=== PATIENT | female | born 1955 | race Caucasian/White ===

== ENCOUNTER 2021-02-16 15:29 | Outpatient (REF) | payer OTHER, SELFPAY ==
--- NOTE | ~2021-02-16 | MM_ITS ---
EXAMINATION: MM SCREENING DIGITAL BREAST TOMOSYNTHESIS, BILATERAL CLINICAL INFORMATION: Screening. Asymptomatic. Prior left lumpectomy for breast cancer 2008. Due for yearly. COMPARISON: Mammography: 02/23/2020, 10/26/2018, 10/13/2017, 10/07/2016 TECHNIQUE: Digital breast tomosynthesis is performed in both the craniocaudal and mediolateral oblique views along with computer-aided detection (CAD). Synthesized 2D images are generated from the tomosynthesis. FINDINGS: There are scattered areas of fibroglandular density (ACR BI-RADS breast composition Category b). There are scattered asymmetries right breast similar to prior studies. No developing density. Biopsy clip marker again seen central 9:00 right breast mid depth. There are post therapy changes on the left with minor scarring and reduced breast size and surgical clips as before. Neither breast shows significant change from prior studies. MM/MM tomosynthesis screening BI IMPRESSION: No significant changes from prior exams. Post therapy changes left breast. ASSESSMENT: BI-RADS 2: Benign RECOMMENDATION: Routine annual mammography screening. This patient's information was entered into a reminder system with a target due date for their next mammogram.
== END 2021-02-16 15:30 | disposition home or self-care (01) ==
LOC: HO.MAMMO 15:29
PROVIDERS: PCP Nurse Practitioner Family; Visit Provider Nurse Practitioner Family
DX: Z12.31 Encounter for screening mammogram for malignant neoplasm of breast (principal)
CPT/HCPCS: 77063; 77067

== ENCOUNTER 2022-02-22 08:41 | Outpatient (REF) | payer OTHER, SELFPAY ==
--- NOTE | ~2022-02-22 | MM_ITS ---
EXAMINATION: BONE DENSITOMETRY CLINICAL INDICATION: Osteoporosis. COMPARISON: Baseline BD dated 02/14/2010. TECHNIQUE: Using a [employer] DXA System (software version: 13.1) manufactured by [employer], dual-energy x-ray absorptiometry was performed of the lumbar spine and left hip. The images are of good technical quality. Summary results are attached. FINDINGS: AP SPINE L1-L4: Current: BMD 0.985 g/cm2, Z-score -0.3, T-score -1.6, osteopenia, 12.2% decrease from baseline (<5% change is not significant). Baseline: BMD 1.122 g/cm2. LEFT FEMUR, NECK: Current: BMD 0.680 g/cm2, Z-score -1.3, T-score -2.6, osteoporosis. Baseline: BMD 0.886 g/cm2. LEFT FEMUR, TOTAL: Current: BMD 0.747 g/cm2, Z-score -1.0, T-score -2.1, osteopenia, 21.0% decrease from baseline (<5% change is not significant). Baseline: BMD 0.946 g/cm2. IDENTIFIED RISK FACTORS: Menopause. HISTORY OF FRACTURE: None listed. MEDICATIONS: Vitamin D. MM/XR DEXA axial skeleton IMPRESSION: 1. DIAGNOSIS: Osteoporosis based on the lowest T-score value of -2.6 in the femoral neck applying World Health Organization criteria. 2. 10-YEAR FRACTURE RISK PREDICTION, FRAX: Major osteoporotic fracture (clinical spine, forearm, hip or shoulder) 13.5%. Hip fracture 3.0%. 3. Treatment Recommendations: NOF guidelines recommend consideration for treatment in postmenopausal women and men age 50 and older presenting with the following: -A hip or vertebral (clinical or morphometric) fracture. -T-score less than or equal to -2.5 at the femoral neck or spine after appropriate evaluation to exclude secondary causes. -Low bone mass at the hip or spine and a 10-year fracture probability by FRAX of greater than or equal to 3% for hip fracture or greater than or equal to 20% for major osteoporotic fracture based on the [place] adapted WHO algorithm. 4. Other Recommendations: All treatment decisions require clinical judgment and consideration of individual patient factors, including patient preferences, comorbidities, previous drug use, risk factors not captured in the FRAX model (e.g. frailty, falls, vitamin D deficiency, increased bone turnover, interval significant decline in bone density) and possible under or overestimation of fracture risk by FRAX. Additional medical evaluation for secondary cause of low bone mineral density may be appropriate. FUTURE SCAN RECOMMENDATION: People with diagnosed cases of osteoporosis or at high risk for fracture should have regular bone mineral density tests. For patients eligible for Medicare, routine testing is allowed once every 2 years. The testing frequency can be increased to one year for patients who have rapidly progressing disease, those who are receiving or discontinuing medical therapy to restore bone mass, or have additional risk factors.
--- NOTE | ~2022-02-22 | MM_ITS ---
EXAMINATION: MM SCREENING DIGITAL BREAST TOMOSYNTHESIS, BILATERAL CLINICAL INFORMATION: Screening. Asymptomatic. Status post left lumpectomy. COMPARISON: Mammography: February 16, 2021 and studies dating back to September 01, 2013 TECHNIQUE: Digital breast tomosynthesis is performed in both the craniocaudal and mediolateral oblique views along with computer-aided detection (CAD). Synthesized 2D images are generated from the tomosynthesis. FINDINGS: There are scattered areas of fibroglandular density (ACR BI-RADS breast composition Category b). There is a stable parenchymal pattern of the right breast. There is a stable parenchymal pattern with postsurgical change within the left breast. MM/MM tomosynthesis screening BI IMPRESSION: There are no significant changes from prior study. ASSESSMENT: BI-RADS 2: Benign RECOMMENDATION: Routine annual mammography screening. This patient's information was entered into a reminder system with a target due date for their next mammogram.
== END 2022-02-22 08:42 | disposition home or self-care (01) ==
LOC: HO.MAMMO 08:41
PROVIDERS: PCP Nurse Practitioner Family; Visit Provider Nurse Practitioner Family
DX: Z12.31 Encounter for screening mammogram for malignant neoplasm of breast (principal); Z13.820 Encounter for screening for osteoporosis; Z78.0 Asymptomatic menopausal state
CPT/HCPCS: 77063; 77067; 77080

== ENCOUNTER 2023-03-14 09:50 | Outpatient (REF) | payer MEDICARE, OTHER, SELFPAY ==
--- NOTE | ~2023-03-14 | MM_ITS ---
EXAMINATION: MM SCREENING DIGITAL BREAST TOMOSYNTHESIS, BILATERAL CLINICAL INFORMATION: Screening. Asymptomatic. The patient is status post left lumpectomy for breast cancer in 2008. COMPARISON: Mammography: This study is compared with prior exams dating back to 2018. TECHNIQUE: Digital breast tomosynthesis is performed in both the craniocaudal and mediolateral oblique views along with computer-aided detection (CAD). Synthesized 2D images are generated from the tomosynthesis. FINDINGS: There are scattered areas of fibroglandular density (ACR BI-RADS breast composition Category b). There are no significant masses, abnormal calcifications, or other abnormalities. There are surgical clips in the left axilla and postsurgical changes in the upper outer quadrant of the left breast. There is a tissue marker in the upper outer quadrant of the right breast from prior benign percutaneous biopsy. MM/MM tomosynthesis screening BI IMPRESSION: No mammographic evidence of malignancy. ASSESSMENT: BI-RADS BI-RADS 2 - Benign Findings RECOMMENDATION: Routine annual mammography screening. 1 year F/U This examination should not preclude the clinical evaluation of a suspicious palpable abnormality. This patient's information was entered into a reminder system with a target due date for their next mammogram.
== END 2023-03-14 09:51 | disposition home or self-care (01) ==
LOC: HO.MAMMO 09:50
PROVIDERS: PCP Obstetrics & Gynecology Gynecology; Visit Provider Nurse Practitioner Family
DX: Z12.31 Encounter for screening mammogram for malignant neoplasm of breast (principal)
CPT/HCPCS: 77063; 77067

== ENCOUNTER → 2023-03-14 10:15 | Outpatient (BNV) | payer MEDICARE, OTHER, SELFPAY | PROVIDERS: PCP Obstetrics & Gynecology Gynecology; Visit Provider Radiology Diagnostic Radiology | DX: Z12.31 Encounter for screening mammogram for malignant neoplasm of breast (principal) | CPT/HCPCS: 77063; 77067 ==

== ENCOUNTER 2024-04-02 08:08 | Outpatient (REF) | payer MEDICARE, OTHER, SELFPAY ==
--- NOTE | ~2024-04-02 | MM_ITS ---
EXAMINATION: BONE DENSITOMETRY CLINICAL INDICATION: Osteoporosis. COMPARISON: Previous BD dated 02/22/2022 and baseline BD dated 02/15/2000. TECHNIQUE: Using a [employer] DXA System (software version: 13.1) manufactured by [employer], dual-energy x-ray absorptiometry was performed of the lumbar spine and left hip. The images are of good technical quality. Summary results are attached. FINDINGS: LEFT FEMUR, NECK: Current: BMD 0.694 g/cm2, Z-score -1.1, T-score -2.5, osteoporosis. Prior: BMD 0.680 g/cm2. Baseline: BMD 0.886 g/cm2. LEFT FEMUR, TOTAL: Current: BMD 0.751 g/cm2, Z-score -0.9, T-score -2.0, osteopenia, 0.5% increase from previous, 20.6% decrease from baseline (<5% change is not significant). Prior: BMD 0.747 g/cm2. Baseline: BMD 0.946 g/cm2. AP SPINE L1-L4: Current: BMD 0.936 g/cm2, Z-score -0.6, T-score -2.0, osteopenia, 5.0% decrease from previous, 16.6% decrease from baseline (<5% change is not significant). Prior: BMD 0.985 g/cm2. Baseline: BMD 1.122 g/cm2. IDENTIFIED RISK FACTORS: Menopause, height loss, osteoporosis. HISTORY OF FRACTURE: None listed. MEDICATIONS: Calcium, vitamin D. MM/XR DEXA axial skeleton IMPRESSION: 1. DIAGNOSIS: Osteoporosis based on the lowest T-score value of -2.5 in the femoral neck applying World Health Organization criteria. 2. 10-YEAR FRACTURE RISK PREDICTION, FRAX: According to the guidelines, FRAX calculation should only be performed on patients in the osteopenia bone density category. Therefore, FRAX was not performed on this patient. 3. Treatment Recommendations: NOF guidelines recommend consideration for treatment in postmenopausal women and men age 50 and older presenting with the following: -A hip or vertebral (clinical or morphometric) fracture. -T-score less than or equal to -2.5 at the femoral neck or spine after appropriate evaluation to exclude secondary causes. -Low bone mass at the hip or spine and a 10-year fracture probability by FRAX of greater than or equal to 3% for hip fracture or greater than or equal to 20% for major osteoporotic fracture based on the [place] adapted WHO algorithm. 4. Other Recommendations: All treatment decisions require clinical judgment and consideration of individual patient factors, including patient preferences, comorbidities, previous drug use, risk factors not captured in the FRAX model (e.g. frailty, falls, vitamin D deficiency, increased bone turnover, interval significant decline in bone density) and possible under or overestimation of fracture risk by FRAX. Additional medical evaluation for secondary cause of low bone mineral density may be appropriate. FUTURE SCAN RECOMMENDATION: People with diagnosed cases of osteoporosis or at high risk for fracture should have regular bone mineral density tests. For patients eligible for Medicare, routine testing is allowed once every 2 years. The testing frequency can be increased to one year for patients who have rapidly progressing disease, those who are receiving or discontinuing medical therapy to restore bone mass, or have additional risk factors. Electronically signed by: Gregor Epps MD 04/08/2024 11:03 AM JIGNAT
--- NOTE | ~2024-04-02 | MM_ITS ---
EXAMINATION: MM SCREENING DIGITAL BREAST TOMOSYNTHESIS, BILATERAL CLINICAL INFORMATION: Screening. Asymptomatic. COMPARISON: Mammography: Comparison is made with available priors TECHNIQUE: Digital breast tomosynthesis is performed in both the craniocaudal and mediolateral oblique views along with computer-aided detection (CAD). Synthesized 2D images are generated from the tomosynthesis. FINDINGS: There are scattered areas of fibroglandular density (ACR BI-RADS breast composition Category b). Left lumpectomy changes are stable. Right marker clip from previous benign needle core biopsy. There are no significant masses, abnormal calcifications, or other abnormalities. MM/MM tomosynthesis screening BI IMPRESSION: No mammographic evidence of malignancy. ASSESSMENT: BI-RADS BI-RADS 2 - Benign Findings RECOMMENDATION: Routine annual mammography screening. 1 year F/U This examination should not preclude the clinical evaluation of a suspicious palpable abnormality. This patient's information was entered into a reminder system with a target due date for their next mammogram. Electronically signed by: Pamela De Guzman DO 04/25/2024 04:00 PM EDT
== END 2024-04-02 08:09 | disposition home or self-care (01) ==
LOC: HO.MAMMO 08:08
PROVIDERS: PCP Nurse Practitioner Family; Visit Provider Obstetrics & Gynecology Gynecology
DX: Z12.31 Encounter for screening mammogram for malignant neoplasm of breast (principal); M81.0 Age-related osteoporosis without current pathological fracture
CPT/HCPCS: 77063; 77067; 77080

== ENCOUNTER → 2024-04-02 08:30 | Outpatient (BNV) | payer MEDICARE, OTHER, SELFPAY | PROVIDERS: PCP Nurse Practitioner Family; Visit Provider Internal Medicine | DX: Z12.31 Encounter for screening mammogram for malignant neoplasm of breast (principal) | CPT/HCPCS: 77063; 77067 ==

== ENCOUNTER 2024-09-12 09:21 | Day surgery (SDC) | payer MEDICARE, OTHER, SELFPAY ==
--- OUTSIDE RECORDS SUMMARY | 2024-09-12 09:46 | XMS_ITS | Patient Health Record ---
Author Organization [facility] Address [address] [place] [address] Care Team Providers Care Wheel Cleaner Name Role Phone EBONY BARKSDALE N.P. Primary Care Provider Claudia Degroot Unavailable [phone] Allergies No Known Allergies Reason For Referral No Information Medications Medication SIG (Take, Route, Frequency, Duration) Notes Start Date End Date Status Vitamin D3 25 MCG (1000 UT) 2 tablets Orally Once a day Active Magnesium 400 MG 1 capsule with a ricardo l Orally Once a day Unknown Dose Active Calcium 500 MG 1 tablet with meals Orally Twice a day Active Social History Tobacco Use: Social History Observation Description Date Details (start date - stop date) Former Smoker NA - NA Tobacco Use/Smoking Question Answer Notes Are you a former smoker How long has it been since you last smoked? > 10 years Alcohol Screen (Audit-C) Question Answer Notes Did you have a drink containing alcohol in the p ast year? No Points 0 Interpretation Negative Tobacco use other than smoking: Question Answer Notes Are you an other tobacco user? No Problems Problem Type SNOMED Code ICD Code Onset Dates Problem Status W/U Status Risk Notes Problem Incomplete uterovaginal prolapse (599175260) Incomplete uterovaginal prolapse (N81.2) Active confirmed Problem Herniation of rectum into vagina (000171828) Rectocele (N81.6) Active confirmed Problem Age-related osteoporosis (254168494) Age-related osteoporosis without current pathological fracture (M81.0) Active confirmed Problem Osteochondropathy (93703950) Disorder of bone density and structure, unspecified (M85.9) Active confirmed Problem Hyperparathyroidism (63860253) Hyperparathyroi dism, unspecified (E21.3) Active confirmed Problem Uncomplicated asthma (disorder) (385040183) Unspecified asthma, uncomplicated (J45.909) Active confirmed Problem Cystocele (316427368) Cystocele, unspecified (N81.10) Active confirmed Problem Screening for malignant neoplasm of breast (920420916) Encounter for screening mammogram for malignant neoplasm of breast (Z12.31) Active confirmed Problem Personal history of primary malignant neoplasm of breast (221307576) Personal history of malignant neoplasm of breast (Z85.3) Active confirmed Problem Vitamin D deficiency (34878070) Vitamin D deficiency, unspecified (E55.9) Active confirmed Vital Signs Temperature 98.0 degrees Fahrenheit 07/23/2024 Blood pressure diastolic 78 mm Hg 07/23/2024 Height 62.75 in 07/23/2024 Blood pressure systolic 120 mm Hg 07/23/2024 Weight 152 lbs 07/23/2024 BMI 27.14 kg/m2 07/23/2024 Encounters Encounter Location Date Provider Diagnosis [address] [address] 07/23/2024 Claudia Corona Encounter for screening mammogram for malignant neoplasm of breast Z12.31 ; Incomplete uterovaginal prolapse N81.2 ; Encounter for gynecological examination (general) (routine) without abnormal findings Z01.419 and Cystocele, unspecified N81.10 Assessments Encounter Date Diagnosis (ICD Code) Assessment Notes Treatment Notes Treatment Clinical Notes Section Notes 07/23/2024 Encounter for screening mammogram for malignant neoplasm of breast (ICD-10 - Z12.31) REGULAR MAMMOGRAMS AND SBE'S WERE RECOMMENDED. 07/23/2024 Incomplete uterovaginal prolapse (ICD-10 - N81.2) DISCUSSED DX AND TX OPTIONS. DISCUSSED UTERINE PROLAPSE WITH CYSTOCELE AND IMPLICATIONS OF DX. THERE HAS BEEN NO CHANGE ERVIN PAT REMAINS ASYMPTOMATIC. 07/23/2024 Encounter for gynecological examination (general) (routine) without abnormal findings (ICD-10 - Z01.419) NO PAP TEST, DUE IN 2025. 07/23/2024 Cystocele, unspecified (ICD-10 - N81.10) DISCUSSED FINDINGS, DX AND TX OPTIONS. Plan Of Treatment Pending Test Test Name Order Date MAMMOGRAM, SCREENING 07/12/2022 MAMMOGRAM, SCREENING 07/18/2023 MAMMOGRAM, SCREENING 07/23/2024 Bone Density 03/23/2021 1,25OH VITAMIN D 07/18/2023 25OH VITAMIN D 09/20/2022 25OH VITAMIN D 07/17/2022 COMPREHENSIVE METABOLIC PANEL 07/17/2022 N-TELOPEPTIDE CROSS 07/17/2022 PTH, INTACT 07/17/2022 PTH, INTACT 09/20/2022 PTH, INTACT 07/18/2023 TSH 07/17/2022 BONE DENSITY 07/18/2023 MM Digital Mammo Screening 07/18/2023 MM Digital Mammo Screening 07/12/2022 MM Digital Mammo Screening 07/23/2024 Next Appt Details Provider Name:Claudia Berg lara, 08/05/2025 10:00:00 AM, [address] [place] [address], [facility], [place], [address], Insurance Providers Payer Name Payer Address Payer Phone Subscriber Number Group Number Insured Name Patient Relationship to Insured Coverage Start Date Coverage End Date MEDICARE [address] [facility], [place] [id number] RONA LEÓN Self - patient is the insured [facility] [address] [place] [address] [phone] [id number] RONA LEÓN Self - patient is the insured Medical (General) History Medical History History ICD Code Unspecified asthma, uncomplicated J45.90 9 Personal history of malignant neoplasm o f breast Z85.3 Incomplete uterovaginal prolapse N81.2 Rectocele N81.6 Cystocele, unspecified N81.10 Disorder of bone density and structure, unspecified M85.9 Age-related osteoporosis without current pathological fracture M81.0 Vitamin D deficiency, unspecified E55.9 Hyperparathyroidism, unspecified E21.3 Surgical History Surgery Date(Month/Year) Cholecystectomy 2018 lumpectomy L breast for invasive ca stag e 0. s/p RT. No tamoxifen 2008 Bladder Sling 2001 lumpectomy R breast, benign 2009 Gallbaldder removed 2019 Hospitalization History Reason Date(Month/Year) See Surgical History
--- OUTSIDE RECORDS SUMMARY | 2024-09-12 09:46 | XMS_ITS ---
Author Organization [facility] Address [address] [place] [address] Care Team Providers Care Wind Turbine Machinist Name Role Phone Mana Pereira N.P. Primary Care Provider Unava ilable Pascual Barrow Unavailable [phone] REASON FOR VISIT positive colon ca screening using cologuard Encounters Encounter Location Date Provider Diagnosis [facility] Outpatient [address] [place] [phone] 09/12/2024 Pascual Barrow PLAN OF TREATMENT Next Appt Details Provider Name:Pascual Barrow , 09/12/2024 10:40:00 AM, [address] [place] [address] , [place], [place], [phone],
--- OUTSIDE RECORDS SUMMARY | 2024-09-12 09:47 | XMS_ITS ---
Author Organization [facility] Address [address] [place] [address] Care Team Providers Care Cane Splicer Name Role Phone Mana Pereira N.P. Primary Care Provider UnaPascual Sainz Unavailable [phone] REASON FOR VISIT osmo prep is N/A Encounters Encounter Location Date Provider Diagnosis [facility] [address] [place] [phone] 09/10/2024 Pascual Barrow PLAN OF TREATMENT Next Appt Details Provider Name:Pascual Barrow , 09/12/2024 10:40:00 AM, [address] , [place], [place], [phone],
--- OUTSIDE RECORDS SUMMARY | 2024-09-12 09:47 | XMS_ITS ---
Author Organization [email or web address] [facility] Address [address] [place] [address] Care Team Providers Care Public Health Educator Name Role Phone EBONY BARKSDALE N.P. Primary Care Provider Claudia Degroot Unavailable [phone] Allergies No Known Allergies REASON FOR VISIT Annual ROLL ON MAN Physical, Annual ROLL ON MAN Physical 60-85+ Medications Medication SIG (Take, Route, Frequency, Duration) Notes Start Date End Date Status Magnesium 400 MG 1 capsule with a ricardo l Orally Once a day Unknown Dose Active Vitamin D3 25 MCG (1000 UT) 2 tablets Orally Once a day Active Social History Tobacco Use: [...] Problem Status W/U Status Risk Notes Problem Screening for malignant neoplasm of breast (014364807) Encounter for screening mammogram for malignant neoplasm of breast (Z12.31) Active confirmed Vital Signs Temperature 97.1 degrees Fahrenheit 07/18/20 23 Blood pressure systolic 118 mm Hg 07/18/20 23 Blood pressure diastolic 84 mm Hg 023 Height 62.75 in 07/18/2023 Weight 155 lbs 07/18/2023 BMI 27.67 kg/m2 07/18/2023 Encounters Encounter Location Date Provider Diagnosis [email or web address] [facility] [address] [place] [address] 07/18/2023 Claudia Corona Encounter for screening mammogram for malignant neoplasm of breast Z12.31 ; Age-related osteoporosis without current pathological fracture M81.0 ; Incomplete uterovaginal prolapse N81.2 and Encounter for gynecological examination (general) (routine) without abnormal findings Z01.419 Assessments Encounter Date Diagnosis (ICD Code) Assessment Notes Treatment Notes Treatment Clinical Notes Section Notes 07/18/2023 Encounter for screening mammogram for malignant neoplasm of breast (ICD-10 - Z12.31) REGULAR MAMMOGRAMS AND SBE'S WERE RECOMMENDED. 07/18/2023 Age-related osteoporosis without current pathological fracture (ICD-10 - M81.0) DISCUSSED OSTEOPOROSIS AND ITS IMPACT ON HER HEALTH. ADEQUATE CALCIUM AND VIT D. WEIGHT BEARING EXERCISES. OSTEO PRECAUTIONS. REPEAT BMD IN 2023. DISCUSSED INVERSE RELATIONSHIP BETWEEN VIT D AND PTH. REASSURED HER THAT PTH LEVELS HAVE NORMALIZED WITH IMPROVED VIT D LEVELS. CONTINUE VIT D 1000 IU DAILY. CHECK VIT D AND PTH NEXT YEAR. 07/18/2023 Incomplete uterovaginal prolapse (ICD-10 - N81.2) DISCUSSED FINDINGS, DX AND TX OPTIONS. PAT IS ASYMPTOMATIC AND REFUSES PESSARY OR SURGERY. 07/18/2023 Encounter for gynecological examination (general) (routine) without abnormal findings (ICD-10 - Z01.419) NO PAP TEST, DUE IN 2023. 07/18/2023 Other Plan Of Treatment Treatment Notes Assessment Notes Encounter for screening mamm ogram for malignant neoplasm of breast REGULAR MAMMOGRAMS AND SBE'S WERE RECOMMENDED. Age-related osteoporosis wit hout current pathological fracture DISCUSSED OSTEOPOROSIS AND ITS IMPACT ON HER HEALTH. ADEQUATE CALCIUM AND VIT D. WEIGHT BEARING EXERCISES. OSTEO PRECAUTIONS. REPEAT BMD IN 2023. DISCUSSED INVERSE RELATIONSHIP BETWEEN VIT D AND PTH. REASSURED HER THAT PTH LEVELS HAVE NORMALIZED WITH IMPROVED VIT D LEVELS. CONTINUE VIT D 1000 IU DAILY. CHECK VIT D AND PTH NEXT YEAR. Incomplete uterovaginal prolapse DISCUSSED FINDINGS, DX AND TX OPTIONS. PAT IS ASYMPTOMATIC AND REFUSES PESSARY OR SURGERY. Encounter for gynecological examination (general) (routine) without abnormal findings NO PAP TEST, DUE IN 2023. Pending Test Test Name Order Date MAMMOGRAM, SCREENING 07/18/2023 1,25OH VITAMIN D 07/18/2023 PTH, INTACT 07/18/2023 BONE DENSITY 07/18/2023 MM Digital Mammo Screening 07/18/2023 Next Appt Details Follow Up: 1 Year, Reason: Provider Name:Claudia Deangelo Morena bermudez, 08/05/2025 10:00:00 AM, [address], [address], [place], [address], Progress Notes * MARRY LEÓNOB:1955 ( 68 yo F)Acc No.[id number]:07/18/2023 PROGRESS NOTES Patient:?RONA LEÓN Appointment Provider:?Claudia bermudez M.D. :1955???Age:68 Y???Sex:Female D ate:07/18/2023 Address:[address] [place], [place] [id number] Pcp:EBONY BARKSDALE N.P. Subjective: * Chief Complaints: * ???Annual ROLL ON MAN PhysicalAnnual ROLL ON MAN Physical 60-85+ * HPI: ???New/Follow-up Patient Consult:? PAT ENTERED MENOPAUSE IN HER 50'S. SHE IS KNOWN TO HAVE UTERINE PROLAPSE WITH CYSTORECTOCELE. SHE HAD BEEN SEEN BY DR WHITE AND OFFERED SURGERY. SHE REFUSED AND REMAINS ASYMPTOMATIC. ?S/P LEFT LUMPECTOMY FOLLOWED BY RADIATION THERAPY FOR BREAST CA IN 2008. SHE HAS DONE WELL. ?S/P BLADDER SLING SURGERY IN 2001 FOR URINARY INCONTINENCE IN 2001. SHE HAS DONE WELL. HEMATURIA WORK UP WAS NORMAL. ?HER LAST MAMMOGRAM DONE IN FEBRUARY 2023 BUT WE DO NOT HAVE ANY RESULTS. SHE SAYS THIS WAS NORMAL. ?HER LAST PAP TEST IN 2021 WAS NEGATIVE AND HPV NEGATIVE. ?HER LAST BMD IN 2021 SHOWED OSTEOPOROSIS WITH T-SCORE OF -2.6 AT THE FEMORAL NECK. OSTEO WORK UP SHOWED LOW NORMAL VIT D AND ELEVATED PTH. SHE HAD BEEN TREATED WITH HIGH DOSE VIT D AND REPEAT VIT D AND PTH BECAME CLOSER TO NORMAL. SHE HAS NO HX OF FRACTURES. ?SHE HAD A COLONOSCOPY DONE IN 2009. ?MODERNA X 2. ???Annual:? Patient presents for annual exam, ages 60-85, postmenopausal. ?General Health Maintenance:?Current breast complaints:?no breast pain, mass, discharge, or skin changes ?Urinary problems:?patient reports no urinary health problems or bowel health problems ?Calcium intake:?takes adequate calcium via diet and supplementation ?Significant ROLL ON MAN problems:?no significant air intercept controller symptoms or problems * ROS:?general:?no?chest pain.?no?palpitations.?no?headache.?no?cough.?no?shortness of breath.?no?fever.?no?unexplained weight loss.?no?nausea/vomiting.?no?change in bowel movements.?no blood in stool.?no?genitourinary complaints.?no?skin complaints.? * Medical History:? * Utilization Review Rn History:?/ Para?2/2.?Sexual activity?currently sexually active, with men.?Last Pap Smear:?07/12/22 NIL, NEG HPV, 03/17/2020 NIL, HRHPV NEG.?Mammogram:?03/14/23 No Report in [facility], 02/22/22 No report in [facility], 02/21/2021, Normal as per Patient.?Abnormal Pap Smear:?no history of abnormal pap smears.?LMP and menses?2009.?History of STD's:?none.?Menarche?19.?Colonoscopy?2010.?Bone Density:?02/22/22 No report in [facility], 2017.? * OB History:?Total living children?2.?NVD?2.? * Surgical History:?Cholecyste ctomy 2018lumpectomy L breast for invasive ca stage 0. s/p RT. No tamoxifen 2009Bladder Sling 2002lumpectomy R breast, benign 2009Gallbaldder removed 2018 * Hospitalization/Major Diagno stic Procedure:?See Surgical History * Family History:?Mother: dece ased, alzheimer's dementia.?Father: alive, skin cancer.? * Social History:?Tobacco Use:?Tobacco Use/Smoking?Are you a?former smoker ?How long has it been since you last smoked??> 10 years ?Tobacco use other than smoking?Are you an other tobacco user??No ???Drugs/Alcohol:?Drugs?Have you used drugs other than those for medical reasons in the past 12 months??No ?Alcohol Screen (Audit-C)?Did you have a drink containing alcohol in the past year??No ?Points?0 ?Interpretation?Negative ???Miscellaneous:?Children: yes, 2. ?Exercise: yes, walking. ?Marital status: , in relationship with male partner. 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 ?Sexually active: yes, monogamous relationship. * Medications:?TakingVitamin D 3 25 MCG (1000 UT) Tablet 2 tablets Orally Once a dayMagnesium 400 MG Capsule 1 capsule with a meal Orally Once a day, Notes: Unknown DoseTaking Vitamin D3 25 MCG (1000 UT) Tablet 2 tablets Orally Once a dayTaking Magnesium 400 MG Capsule 1 capsule with a meal Orally Once a day, Notes: Unknown DoseDiscontinuedVitamin D (Ergocalciferol) 06704 UNIT Capsule 1 capsule Orally EVERY WEEKMedication List reviewed and reconciled with the patientDiscontinued Vitamin D (Ergocalciferol) 47342 UNIT Capsule 1 capsule Orally EVERY WEEKMedication List reviewed and reconciled with the patient * Allergies:?N.K.D.A.no[Allerg ies Verified] Objective: * Vitals:?Ht: 62.75 in, Wt:155 lbs, BMI:27.67 Index, BP:118/84 mm Hg, Temp:97.1 F. * Examination: ???General Exam: ?CONSTITUTIONAL:?NECK/THYROID:?RESPIRATORY:?Auscultation: clear to auscultation bilaterally, Respiratory Effort: normal.?CARDIOVASCULAR:?Auscultation: regular rate and rhythm.?BREAST, Right:?BREAST, Left:?GASTROINTESTINAL:?MUSCULOSKELETAL:?SKIN:?NEURO/PSYCH:?Genitourinary: ?EXTERNAL GENITALIA:?VAGINA:?BLADDER:?URETHRA:?CERVIX:?UTERUS:?ADNEXA:?ANUS AND PERINEUM:? Assessment: * Assessment: 1.?Encounter for screening m ammogram for malignant neoplasm of breast - Z12.31?2.?Age-related osteoporosis without current pathological fracture - M81.0?3.?Incomplete uterovaginal prolapse - N81.2?4.?Encounter for gynecological examination (general) (routine) without abnormal findings - Z01.419 (Primary)? Plan: * Treatment: 2.?Encounter for screening m ammogram for malignant neoplasm of breast?Imaging: MM Digital Mammo Screening Notes: REGULAR MAMMOGRAMS AND SBE'S WERE RECOMMENDED.?? 3.?Age-related osteoporosis without current pathological fracture?LAB: 1,25OH VITAMIN D ?LAB: PTH, INTACT ?Imaging: BONE DENSITY Notes: DISCUSSED OSTEOPOROSIS AND ITS IMPACT ON HER HEALTH. ADEQUATE CALCIUM AND VIT D. WEIGHT BEARING EXERCISES. OSTEO PRECAUTIONS. REPEAT BMD IN 2023. DISCUSSED INVERSE RELATIONSHIP BETWEEN VIT D AND PTH. REASSURED HER THAT PTH LEVELS HAVE NORMALIZED WITH IMPROVED VIT D LEVELS. CONTINUE VIT D 1000 IU DAILY. CHECK VIT D AND PTH NEXT YEAR.?? 4.?Incomplete uterovaginal p rolapse? Notes: DISCUSSED FINDINGS, DX AND TX OPTIONS. PAT IS ASYMPTOMATIC AND REFUSES PESSARY OR SURGERY.?? * Imaging:? * ?Imaging: MAMMOGRAM, SCR EENING * Procedure Codes:? * Preventive Medicine:? ??YOUR PREVENTIVE WELLNESS PLAN:?Osteoporosis prevention?Calcium, D, strength training.?Breast Cancer Screening (Mammogram):?annually.?Cervical Cancer Screening (Pap Smear):?q 3 years with HPV screen.?Colorectal Cancer Screening:?q 10 years.? * Follow Up:?1 Year * Images: Billing Information: * Visit Code:? 44731 Preventive Care Est Pt. Age 65 and over. * Procedure Codes:? * Sign off status: Completed true * Appointment Provider:?Claudia Corona M.D. Date:?07/18/2023 Generated for Tatyana kim/Eli/eTransmitting on:?09/12/2024 09:47 AM EST History and Physical Notes * HPI (History of Present Illness) Category Sub-Category Detail Notes Category Not es New/Follow-up Patient Consult PAT ENTERED MENOPAUSE IN HER 50'S. SHE IS KNOWN TO HAVE UTERINE PROLAPSE WITH CYSTORECTOCELE. SHE HAD BEEN SEEN BY DR WHITE AND OFFERED SURGERY. SHE REFUSED AND REMAINS ASYMPTOMATIC. S/P LEFT LUMPECTOMY FOLLOWED BY RADIATION THERAPY FOR BREAST CA IN 2008. SHE HAS DONE WELL. S/P BLADDER SLING SURGERY IN 2001 FOR URINARY INCONTINENCE IN 2001. SHE HAS DONE WELL. HEMATURIA WORK UP WAS NORMAL. HER LAST MAMMOGRAM DONE IN FEBRUARY 2023 BUT WE DO NOT HAVE ANY RESULTS. SHE SAYS THIS WAS NORMAL. HER LAST PAP TEST IN 2021 WAS NEGATIVE AND HPV NEGATIVE. HER LAST BMD IN 2021 SHOWED OSTEOPOROSIS WITH T-SCORE OF -2.6 AT THE FEMORAL NECK. OSTEO WORK UP SHOWED LOW NORMAL VIT D AND ELEVATED PTH. SHE HAD BEEN TREATED WITH HIGH DOSE VIT D AND REPEAT VIT D AND PTH BECAME CLOSER TO NORMAL. SHE HAS NO HX OF FRACTURES. SHE HAD A COLONOSCOPY DONE IN 2009. MODERNA X 2. Annual General Health Maintenance: Current breast complaints:: no breast pain, mass, discharge, or skin changes Urinary problems:: patient r eports no urinary health problems or bowel health problems Calcium intake:: takes adequ ate calcium via diet and supplementation Significant ROLL ON MAN problems:: n o significant air intercept controller symptoms or problems Examination Category Sub-Category Detail Notes Category Not es General Exam CONSTITUTIONAL: General Appearan ce:: alert, in no acute distress, normal, well nourished NECK/THYROID: Thyroid:: normal size and shape Inspection/Palpation:: normal RESPIRATORY: Auscultation: clear to auscultation bilaterally, Respiratory Effort: normal CARDIOVASCULAR: Auscultation: regula r rate and rhythm GASTROINTESTINAL: Hernias:: no hernias present, no inguinal adenopathy Liver and Spleen:: normal Abdomen:: no masses, nontender, nondiste nded MUSCULOSKELETAL: Inspection/Palpation:: no clubb ing, cyanosis, or edema SKIN: Skin:: normal NEURO/PSYCH: Mood/Affect:: normal Orientation:: time , place, person BREAST, Right: Inspection/Palpation :: no discharge, no masses present, no nipple retraction, no skin changes, no skin dimpling, no tenderness, no lymphadenopathy, no axillary mass, no axillary tenderness BREAST, Left: Inspection/Palpation :: no discharge, no masses present, no nipple retraction, no skin changes, no skin dimpling, no tenderness, no lymphadenopathy, no axillary mass, no axillary tenderness Genitourinary EXTERNAL GENITALIA: External Genitalia:: nor mal, no lesions VAGINA: Vagina:: normal appe arance, no abnormal discharge, no lesions BLADDER: Bladder:: no mass, nontender URETHRA: Urethra:: no erythem a or lesions present CERVIX: Cervix:: no lesions, nontender c ervix is at the level of the introital opening, asymptomatic UTERUS: Uterus:: nontender, normal contour, normal mobility, normal size ADNEXA: Adnexa:: no masses, no tendernes s ANUS AND PERINEUM: Anus/Perineum:: visually norm al
--- OUTSIDE RECORDS SUMMARY | 2024-09-12 09:47 | XMS_ITS | Patient Health Record ---
Author Organization [facility] Address [address] [place] [address] Care Team Providers Care Digital Cartographic Technician Name Role Phone Mana Pereira N.P. Primary Care Provider Pascual Rubio [phone] ALLERGIES Allergen (clinical drug ingredient) Drug/Non Drug Allergy documented on EMR Reaction Allergy Type Onset Date Status enviornmental (uncoded) Unknown Allergy Active REASON FOR REFERRAL No Information MEDICATIONS Medication SIG (Take, Route, Frequency, Duration) Notes Start Date End Date Status Cholestyramine 4 GM/DOSE use anywhere fr om 1/4 to 1 scoop in a glass of orange juice or water Orally Once or Twice a day for diarrhea for 30 day(s) 09/10/2024 Active Vitamin D 50 MCG (1999) 1 tablet Oral ly Once a day for 30 day(s) Active Magnesium 27 Active Calcium 1 tab Oral for 14 days Active IMMUNIZATIONS Vaccine Route Administration Date Status Comme nts Influenza Unknown 09/10/2024 Refused SOCIAL HISTORY Tobacco Use: Social History Observation Description Date Details (start date - stop date) Never Smoker NA - NA Sex Assigned At : Social History Observation Description Sex Assigned At Unknown Tobacco Use/Smoking Question Answer Notes Patient is a nonsmoker Alcohol Screen Question Answer Notes Did you have a drink containing alcohol in the p ast year? 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 Intestinal malabsorption (854126604) Problem Positive colorectal cancer screening using Cologuard test (R19.5) Active confirmed Abnormal feces (617520764) VITAL SIGNS Temperature 98.0 degrees Fahrenheit 09/10/2024 Blood pressure diastolic 00 mm Hg 09/10/2024 Height 5 ft 4 in in 09/10/2024 Blood pressure systolic 000 mm Hg 09/10/2024 Weight 157 lbs 09/10/2024 BMI 26.95 kg/m2 09/10/2024 Encounters Encounter Location Date Provider Diagnosis [facility] [address] [place] [phone] 09/12/2024 Pascual Barrow [facility] [address] [place] [phone] 09/10/2024 Pascual Barrow Bile salt-induced diarrhea K90.89 and Positive colorectal cancer screening using Cologuard test R19.5 [facility] [address] [place] [phone] 09/10/2024 Pascual Barrow ASSESSMENTS Encounter Date Diagnosis Assessment Notes Treatment Notes Treatment Clinical Notes 09/10/2024 Positive colorectal cancer screening using Cologuard test (ICD-10 - R19.5) 09/10/2024 Bile salt-induced diarrhea (ICD-10 - K90.89) PLAN OF TREATMENT Future Test Test Name Order Date COLONOSCOPY 09/10/2024 Next Appt Details Provider Name:Pascual Barrow , 09/12/2024 10:40:00 AM, [address] [place] [address] , [place], [place], [id number], Insurance Providers Payer Name Payer Address Payer Phone Subscriber Number Group Number Insured Name Patient Relationship to Insured Coverage Start Date Coverage End Date MEDICARE OF [place] [address] [facility] [place] [id number] [phone] [id number] RONA LEÓN Self - patient is the insured [employer] [address] [place] [address] [id number] RONA LEÓN Self - patient is the insured MEDICAL (GENERAL) HISTORY Medical History History ICD Code Breast cancer 2009 -on the left--lumpect russ and XRT Negative screening colonoscopy in 2008 Denies MN,DM,CVA,Lung disease,renal dise ase Chronic cough Surgical History Surgery Date(Month/Year) Bladder suspension [facility] Breast cancer surgery -left lumpectomy
--- OUTSIDE RECORDS SUMMARY | 2024-09-12 09:47 | XMS_ITS ---
Author Organization [facility] Address [address] [address] Care Team Providers Care Car Shifter Name Role Phone EBONY BARKSDALE N.P. Primary Care Provider Claudia Degroot Unavailable [phone] Allergies No Known Allergies REASON FOR VISIT Annual LICENSED MASSAGE PRACTITIONER Physical, Annual LICENSED MASSAGE PRACTITIONER Physical 60-85+ Medications Medication SIG (Take, Route, [...] Are you an other tobacco user? No Vital Signs Temperature 98.0 degrees Fahrenheit 07/23/20 24 Blood pressure systolic 120 mm Hg 07/23/20 24 Blood pressure diastolic 78 mm Hg 024 Height 62.75 in 07/23/2024 Weight 152 lbs 07/23/2024 BMI 27.14 kg/m2 07/23/2024 Encounters Encounter Location Date Provider Diagnosis [facility] [facility] [address] [place] [address] 07/23/2024 Claudia Corona Encounter for screening mammogram [...] DX AND TX OPTIONS. Plan Of Treatment Treatment Notes Assessment Notes Encounter for screening mamm ogram for malignant neoplasm of breast REGULAR MAMMOGRAMS AND SBE'S WERE RECOMMENDED. Incomplete uterovaginal prolapse DISCUSSED DX AND TX OPTIONS. DISCUSSED UTERINE PROLAPSE WITH CYSTOCELE AND IMPLICATIONS OF DX. THERE HAS BEEN NO CHANGE ERVIN PAT REMAINS ASYMPTOMATIC. Encounter for gynecological examination (general) (routine) without abnormal findings NO PAP TEST, DUE IN 2025. Cystocele, unspecified DISCUSSED FINDING S, DX AND TX OPTIONS. Pending Test Test Name Order Date MAMMOGRAM, SCREENING 07/23/2024 MM Digital Mammo Screening 07/23/2024 Next Appt Details Follow Up: 1 Year, Reason: Provider Name:Claudia bermudez, 08/05/2025 10:00:00 AM, [address] [facility] ([place], [place]), [address], [place], [address], Progress Notes * MARRY LEÓNOB:1955 ( 69 yo F)Acc No.[id number]:07/23/2024 PROGRESS NOTES Patient:?RONA LEÓN Appointment Provider:?Claudia bermudez M.D. :1955???Age:69 Y???Sex:Female D ate:07/23/2024 Address:[address] [place] [address], [id number] Pcp:EBONY BARKSDALE N.P. Subjective: * Chief Complaints: * ???Annual LICENSED MASSAGE PRACTITIONER PhysicalAnnual LICENSED MASSAGE PRACTITIONER Physical 60-85+ * HPI: ???New/Follow-up Patient Consult:? PAT ENTERED MENOPAUSE IN HER 50'S.? SHE DENIES DYSPAREUNIA.?? SHE IS KNOWN TO HAVE UTERINE PROLAPSE WITH CYSTORECTOCELE.? SHE HAS REMAINED ASYMPTOMATIC.? SHE WAS SEEN BY DR WHITE AND SHE REFUSED SURGERY.? SHE HAD BLADDER SLING SURGERY FOR INCONTINENCE IN 2001.? INCONTINENCE RESOLVED. S/P LEFT LUMPECTOMY AND RADIATION THERAPY IN 2008.? SHE IS FOLLOWED AT [facility]. HEMATURIA WORK UP DONE A FEW YEARS AGO WAS NEGATIVE. HER LAST MAMMOGRAM DONE IN MAR 2024 SHOWED BREASTS ARE NOT DENSE AND WAS NORMAL. HER LAST PAP TEST IN 2021 WAS NEGATIVE AND HPV NEGATIVE. HER LAST BMD IN 2023 SHOWED NO SIGNIFICANT CHANGE COMPARED TO HER BMD IN 2021 WITH LOWEST T-SCORE OF -2.5 AT THE FEMORAL NECK.? SHE HAS NO HX OF FRACTURES. SHE HAD A COLONOSCOPY DONE IN 2009 AND AGREED TO GET COLOGUARD TESTING DONE. MODERNA X 2. ???Annual:? Patient presents for annual exam, ages 60-85, postmenopausal. ?General Health Maintenance:?Current breast complaints:?no breast pain, mass, discharge, or skin changes ?Urinary problems:?patient reports no urinary health problems or bowel health problems ?Calcium intake:?takes adequate calcium via diet and supplementation ?Significant LICENSED MASSAGE PRACTITIONER problems:?no significant label coder symptoms or problems * ROS:?general:?no?chest pain.?no?palpitations.?no?headache.?no?cough.?no?shortness of breath.?no?fever.?no?unexplained weight loss.?no?nausea/vomiting.?no?change in bowel movements.?no blood in stool.?no?genitourinary complaints.?no?skin complaints.? * Medical History:? * Change House Attendant History:?/ Para?2/2.?Sexual activity?currently sexually active, with men.?Last Pap Smear:?07/12/22 NIL, NEG HPV, 03/17/2020 NIL, HRHPV NEG.?Mammogram:?04/02/24 < 50% density, 03/14/23 No Report in [facility], 02/22/22 No report in [facility], 02/21/2021, Normal as per Patient.?Abnormal Pap Smear:?no history of abnormal pap smears.?LMP and menses?2009.?History of STD's:?none.?Menarche?19.?Colonoscopy?2010.?Bone Density:?04/02/24, 02/22/22 No report in [facility], 2017.? * OB [...] , in relationship with male partner. 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 ?Sexually active: yes, monogamous relationship. * Medications:?TakingCalcium 5 00 MG Tablet 1 tablet with meals Orally Twice a day Vitamin D3 25 MCG (1000 UT) Tablet 2 tablets Orally Once a day Magnesium 400 MG Capsule 1 capsule with a meal Orally Once a day , Notes to Pharmacist: Unknown DoseMedication List reviewed and reconciled with the patientTaking Calcium 500 MG Tablet 1 tablet with meals Orally Twice a day Taking Vitamin D3 25 MCG (1000 UT) Tablet 2 tablets Orally Once a day Taking Magnesium 400 MG Capsule 1 capsule with a meal Orally Once a day , Notes to Pharmacist: Unknown DoseMedication List reviewed and reconciled with the patient * Allergies:?N.K.D.A.no[Allerg ies Verified] Objective: * Vitals:?Ht: 62.75 in, Wt: 15 2 lbs, BMI:27.14Index, BP: 120/78 mm Hg, Temp: 98.0 F. * Examination: ???General Exam: ?CONSTITUTIONAL:?NECK/THYROID:?RESPIRATORY:?Auscultation: clear to auscultation bilaterally, Respiratory Effort: normal.?CARDIOVASCULAR:?Auscultation: regular rate and rhythm.?BREAST, Right:?BREAST, Left:?GASTROINTESTINAL:?MUSCULOSKELETAL:?SKIN:?NEURO/PSYCH:?Genitourinary: ?EXTERNAL GENITALIA:?VAGINA:?BLADDER:?URETHRA:?CERVIX:?UTERUS:?ADNEXA:?ANUS AND PERINEUM:? Assessment: * Assessment: 1.?Encounter for screening m ammogram for malignant neoplasm of breast - Z12.31???2.?Incomplete uterovaginal prolapse - N81.2???3.?Encounter for gynecological examination (general) (routine) without abnormal findings - Z01.419 (Primary)???4.?Cystocele, unspecified - N81.10??? Plan: * Treatment: 2.?Encounter for screening m ammogram for malignant neoplasm of breast?Imaging: MM Digital Mammo Screening Notes: REGULAR MAMMOGRAMS AND SBE'S WERE RECOMMENDED.?? 3.?Incomplete uterovaginal p rolapse? Notes: DISCUSSED DX AND TX OPTIONS. DISCUSSED UTERINE PROLAPSE WITH CYSTOCELE AND IMPLICATIONS OF DX. THERE HAS BEEN NO CHANGE ERVIN PAT REMAINS ASYMPTOMATIC.?? 4.?Cystocele, unspecified? Notes: DISCUSSED FINDINGS, DX AND TX OPTIONS.?? * Imaging:? * ?Imaging: MAMMOGRAM, SCR EENING * Procedure Codes:? * Preventive Medicine:? ??YOUR PREVENTIVE WELLNESS PLAN:?Osteoporosis prevention?Calcium, D, strength training.?Breast Cancer Screening (Mammogram):?annually.?Cervical Cancer Screening (Pap Smear):?q 3 years with HPV screen.?Colorectal Cancer Screening:?q 10 years.? * Follow Up:?1 Year * Images: Billing Information: * Visit Code:? [id number] Preventive Care Est Pt. Age 65 and over. * Procedure Codes:? * Sign off status: Completed true * Appointment Provider:?Claudia Corona M.D. Date:?07/23/2024 Generated for Tatyana kim/Eli/Ramesh on:?09/12/2024 09:47 AM EST History and Physical Notes * HPI (History of Present Illness) Category Sub-Category Detail Notes Category Not es New/Follow-up Patient Consult PAT ENTERED MENOPAUSE IN HER 50'S. SHE DENIES DYSPAREUNIA. SHE IS KNOWN TO HAVE UTERINE PROLAPSE WITH CYSTORECTOCELE. SHE HAS REMAINED ASYMPTOMATIC. SHE WAS SEEN BY DR WHITE AND SHE REFUSED SURGERY. SHE HAD BLADDER SLING SURGERY FOR INCONTINENCE IN 2001. INCONTINENCE RESOLVED. S/P LEFT LUMPECTOMY AND RADIATION THERAPY IN 2008. SHE IS FOLLOWED AT [facility]. HEMATURIA WORK UP DONE A FEW YEARS AGO WAS NEGATIVE. HER LAST MAMMOGRAM DONE IN MAR 2024 SHOWED BREASTS ARE NOT DENSE AND WAS NORMAL. HER LAST PAP TEST IN 2021 WAS NEGATIVE AND HPV NEGATIVE. HER LAST BMD IN 2023 SHOWED NO SIGNIFICANT CHANGE COMPARED TO HER BMD IN 2021 WITH LOWEST T-SCORE OF -2.5 AT THE FEMORAL NECK. SHE HAS NO HX OF FRACTURES. SHE HAD A COLONOSCOPY DONE IN 2009 AND AGREED TO GET COLOGUARD TESTING DONE. MODERNA X 2. Annual General Health Maintenance: Current breast complaints:: no breast pain, mass, discharge, or skin changes Urinary problems:: patient r eports no urinary health problems or bowel health problems Calcium intake:: takes adequ ate calcium via diet and supplementation Significant LICENSED MASSAGE PRACTITIONER problems:: n o significant label coder symptoms or problems Examination Category Sub-Category Detail [...] Genitalia:: nor mal, no lesions VAGINA: Vagina:: atrophic va ginal tissue, cystocele present (2nd degree), rectocele present (1st degree) BLADDER: Bladder:: no mass, nontender URETHRA: Urethra:: no erythem a or lesions present CERVIX: Cervix:: cervix is at the level of the introital opening. UTERUS: Uterus:: nontender, normal contour, normal mobility, normal size ADNEXA: Adnexa:: no masses, no tendernes s ANUS AND PERINEUM: Anus/Perineum:: visually norm al
--- OUTSIDE RECORDS SUMMARY | 2024-09-12 09:47 | XMS_ITS ---
Author Organization [facility] Address [address] [place] [address] Care Team Providers Care Business Relationship Manager Name Role Phone Mana Pereira N.P. Primary Care Provider Pascual Rubio [phone] ALLERGIES Allergen (clinical drug ingredient) Drug/Non Drug Allergy documented on EMR Reaction Allergy Type Onset Date Status enviornmental (uncoded) Unknown Allergy Active REASON FOR VISIT Patient presents today for a POSITIVE COLOGUARD MEDICATIONS Medication SIG (Take, Route, Frequency, Duration) Notes Start Date End Date Status Cholestyramine 4 GM/DOSE use anywhere fr om 1/4 to 1 scoop in a glass of orange juice or water Orally Once or Twice a day for diarrhea for 30 day(s) 09/10/2024 Active Vitamin D 50 MCG (1999 UT) 1 tablet Oral ly Once a day [...] salt-induced diarrhea (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) Active confirmed Intestinal malabsorption (287432347) Problem Positive colorectal cancer screening using Cologuard test (R19.5) Active confirmed Abnormal feces (646178031) VITAL SIGNS BMI 26.95 kg/m2 09/10/2024 Blood pressure systolic 000 mm Hg 09/10/19 25 Blood pressure diastolic 00 mm Hg 025 Height 5 ft 4 in in 09/10/2024 Temperature 98.0 degrees Fahrenheit 09/10/19 25 Weight 157 lbs 09/10/2024 Encounters Encounter Location Date Provider Diagnosis [facility] [address] [place] [address] 09/10/2024 Pascual Barrow Bile salt-induced diarrhea K90.89 and Positive colorectal cancer screening using Cologuard test R19.5 ASSESSMENTS Encounter Date Diagnosis Assessment Notes Treatment Notes Treatment Clinical Notes 09/10/2024 Bile salt-induced diarrhea (ICD-10 - K90.89) 09/10/2024 Positive colorectal cancer screening using Cologuard test (ICD-10 - R19.5) PLAN OF TREATMENT Medication Medication Name Sig Start Date Stop Date Notes Cholestyramine 4 GM/DOSE use anywhere fr om 1/4 to 1 scoop in a glass of orange juice or water Orally Once or Twice a day for diarrhea for 30 day(s) 09/10/2024 Future Test Test Name Order Date COLONOSCOPY 09/10/2024 Next Appt Details Follow Up: prn, Reason: Provider Name:Pascual Barrow , 09/12/2024 10:40:00 AM, [address] [place] [address], [id number], Progress Notes * Examination Category Sub-Category Detail Notes General Examination GENERAL APPEARANCE: pleasant , well nourished, well developed, in no acute distress HEAD: EYES: sclera non-icteric EARS: NOSE: THROAT: NECK/THYROID: no cervical lymphade nopathy, neck supple HEART: S1, S2 normal CHEST: LUNGS: clear to auscultatio n bilaterally ABDOMEN: normal bowel sounds, no guarding or rigidity, no guarding or rigidity, no masses palpable, soft, nontender, nondistended NEUROLOGIC: alert and oriented SKIN: nonjaundiced, no spi carlos angiomata EXTREMITIES: no edema PERIPHERAL PULSES: BACK: BREASTS: MUSCULOSKELETAL: MALE GENITOURINARY: LYMPH NODES: RECTAL EXAM: FEMALE GENITOURINARY: ORAL CAVITY: mucosa moist
[2024-09-12 09:49] VITALS: BMI 24.5
[2024-09-12 09:59] VITALS: BP 117/75; PULSE 94; RESP 20; TEMP 36.9; O2SAT 95
[2024-09-12] MEDS: Lactated Ringers 1,000 ML 80 ML IVCONT (10:08)
--- NOTE | 2024-09-12 10:31 | P.CONAN_ITS ---
[facility] Past Medical History Medical History (Updated 09/12/24 @ 09:46 by Olivier Mcleod RN) Chronic cough Breast cancer Family History Family History (Updated 09/12/24 @ 09:47 by Olivier Mcleod RN) Father HTN (hypertension) Family history of problems with anesthesia: No Surgical History Surgical History (Updated 09/12/24 @ 09:46 by Olivier Mcleod, MATT) History of bladder suspension procedure History of cholecystectomy History of lumpectomy of left breast H/O colonoscopy History of Problems with Anesthesia: No Social History Social History Are you a primary direct care supervisor to a significant other at home: No Do you presently have visiting nurse or other home services: No Patient Tobacco Use Status: Former Tobacco user Second Hand Smoke Exposure: No Use of substances other than those prescribed or required for medical reasons: No Have you been hit, kicked, punched, or otherwise hurt by someone within the past year? If so, by whom?: No Are you DNR?: No Advance Directives: No Advance Directives Information Provided: Yes Advance Directives on File: No Meds Allergies Allergy/AdvReac Type Severity Reaction Status Date / Time No Known Allergies Allergy Mild N/A Unverified 04/22/20 14:41 environmental Allergy Unknown Uncoded 06/12/18 00:00 Active Medications: Current Medications Lactated Ringer's (Lr) 1,000 mls @ 80 mls/hr IVCONT .[id number] EWA Last Admin: 09/12/24 10:08 Dose: 80 mls/hr Naloxone HCl (Naloxone Hcl 0.4 Mg/Ml Vial) 0.04 mg IVPUSH Q5M PRN PRN Reason: Excessive sedation or RR < 8 Sodium Biphosphate/Sodium Phosphate (Sodium Phosphate,Carbon-Dibasic 133 Ml Enema) 133 ml AL ONCE PRN PRN Reason: Poor Colonoscopy Prep Results Exam Height,Weight and Vital Signs: Height 5 ft 4 in Weight 64.8 kg Last Vital Signs Temp 98.5 F 09/12/24 09:59 Pulse 94 09/12/24 09:59 Resp 20 09/12/24 09:59 BP 117/75 09/12/24 09:59 Pulse Ox 95 09/12/24 09:59 O2 Del Method Room Air 09/12/24 09:59 Airway Mallampati Class: II TM Dist: >3cm Neck ROM: Full Heart: rrr Lungs: cta Assessment and Plan Assessment Anesthesia Assessment: Anesthesia Plan Discussed and Chart Reviewed Final Anesthetic Review Family History of Problems with Anesthesia: No History of Problems with Anesthesia: No NPO: Yes ASA Class: II Final Preanesthetic Review: No Changes in Pt Med Stat, Meds/Allgs Chart Reviewed and Consent Obtained/Reviewed Patient Risk: Low Procedure Risk: Low Anesthetic Plan Anesthetic Plan: MAC: Disposition: Standard PACU
[2024-09-12 11:58] VITALS: BP 101/48; PULSE 95; RESP 16; TEMP 36.3; O2SAT 94
--- NOTE | 2024-09-12 12:09 | PM.OP ---
Brief Operative Note Date of Service: 09/12/24 Pre-op diagnosis: + Cologuard Post-op diagnosis: other (Colon polyp) Procedure: Colonoscopy to the cecum and TI with cold snare polypectomy x 1 Surgeon: Pascual Barrow MD Anesthesia: MAC Was an Hearing Dog Trainer used for this Procedure?: No Estimated blood loss (mL): 2.0 Pathology: other (A. Polyp in area of Hepatic Flexure) Condition: stable Disposition: PACU
[2024-09-12 12:13] VITALS: BP 108/67; PULSE 83; RESP 16; TEMP 36.1; O2SAT 95
--- NOTE | 2024-09-12 12:31 | OP_ITS ---
DATE OF SERVICE: 09/12/2024 SURGEON: Pascual Barrow MD INDICATIONS: The patient presents for evaluation of positive Cologuard test. Full consent has been obtained from her for this, including risks of bleeding and perforation. PREOPERATIVE DIAGNOSIS: Positive Cologuard test. POSTOPERATIVE DIAGNOSIS: PROCEDURE PERFORMED: Colonoscopy to cecum and terminal ileum with cold snare polypectomy x1. ESTIMATED BLOOD LOSS: COMPLICATIONS: ANESTHESIA: Monitored anesthesia care. ASSISTANTS: SPECIMENS: POSTOPERATIVE DIAGNOSES: Positive Cologuard test, colon polyp, diverticulosis, and internal hemorrhoids. DESCRIPTION OF PROCEDURE: The patient was placed in the left lateral decubitus position. The digital rectal exam revealed no abnormalities. The Olympus video pediatric colonoscope was then entered into the rectum and advanced easily to the cecum. Once in the cecum, I did identify normal-appearing cecal pouch with appendiceal orifice and a normal-appearing ileocecal valve. The terminal ileum was cannulated and appeared normal. The scope was withdrawn back in the colon. The entire cecum and ileocecal valve appeared normal. The appendiceal orifice appeared normal. The scope was slowly withdrawn assessing all mucosal surfaces carefully. Preparation was excellent. In the area of the hepatic flexure, was a flat, but raised approximately 6 mm polyp, which was removed by cold snare polypectomy completely and recovered by suction. The polypectomy site appeared clean, without any sign of residual polyp nor significant bleeding. I did not visualize any other polyps, colitis, nor angiodysplasias. There was a dubm-[id number] amount of sigmoid diverticulosis. In the rectum, scope was retroflexed, visualizing internal hemorrhoids, but no other pathology. The rectal mucosa appeared normal. The scope was straightened and withdrawn from the patient. She tolerated the procedure well and was returned to the recovery area in stable condition. IMPRESSION: 1. Colon polyp. 2. Diverticulosis. 3. Internal hemorrhoids. PLAN: The results of the pathology will be checked. If this is a tubular adenoma, I would recommend a followup colonoscopy in 5 years. If it is only hyperplastic, I would recommend a followup colonoscopy in 10 years. She was advised not to use any aspirin and NSAIDs for 1 week. She will, otherwise, see me on a p.r.n. basis. MD DERRICK Otto/NARA / [phone]
== END 2024-09-12 12:37 | disposition home or self-care (01) ==
PROVIDERS: PCP Nurse Practitioner Family; Visit Provider Internal Medicine
PROC: 0DJD8ZZ Inspection of Lower Intestinal Tract, Via Natural or Artificial Opening Endoscopic (ICD-10-PCS; CPT 45378; principal; 2024-09-12 10:40)
DX: R19.5 Other fecal abnormalities (principal); D12.3 Benign neoplasm of transverse colon; K57.30 Diverticulosis of large intestine without perforation or abscess without bleeding; K64.8 Other hemorrhoids; K90.89 Other intestinal malabsorption; R05.3 Chronic cough; Z85.3 Personal history of malignant neoplasm of breast; Z92.3 Personal history of irradiation; Z79.899 Other long term (current) drug therapy; Z90.49 Acquired absence of other specified parts of digestive tract; Z98.890 Other specified postprocedural states
CPT/HCPCS: 45385; 88305; J2003; J2250; J2704

== ENCOUNTER 2025-04-08 07:57 | Outpatient (REF) | payer MEDICARE, OTHER, SELFPAY ==
--- OUTSIDE RECORDS SUMMARY | 2024-09-12 06:40 | XMS_ITS ---
Author Organization [facility] Address [address] [place] [address] Care Team Providers Care Personnel Counselor Name Role Phone Mana Pereira N.P. Primary Care Provider Pascual Rubio [phone] REASON FOR VISIT positive colon ca screening using cologuard Problems Problem Type SNOMED Code ICD Code Onset Dates Problem Status W/U Status Risk Notes Problem Diverticular disease of colon (219339043) Diverticulosis of large intestine without perforation or abscess without bleeding (K57.30) Active confirmed Encounters Encounter Location Date Provider Diagnosis [facility] Outpatient [address] [place] [phone] 09/12/2024 Pascual Barrow Colon cancer [place] Z12.11 ; Colon polyp K63.5 ; Heme + stool R19.5 ; Diverticulosis of large intestine without perforation or abscess without bleeding K57.30 and Other hemorrhoids K64.8 Assessments Encounter Date Diagnosis (ICD Code) Assessment Notes Treatment Notes Treatment Clinical Notes Section Notes 09/12/2024 Colon cancer screening (ICD-10 - Z12.11) 09/12/2024 Colon polyp (ICD-10 - K63.5) 09/12/2024 Heme + stool (ICD-10 - R19.5) 09/12/2024 Diverticulosis of large intestine without perforation or abscess without bleeding (ICD-10 - K57.30) 09/12/2024 Other hemorrhoids (ICD-10 - K64.8) Plan Of Treatment Next Appt Details Provider Name:Pascual Barrow , 05/14/2025 10:00:00 AM, [address], [address], [place], [address], Progress Notes * RONA LEÓN RDOB:1955 (69 yo F)Acc No.[id number]:09/12/2024 COLON WITH MAC Patient: RONA WHEELER Provider: Sarah Barrow MD :1955 A ge:69 Y S ex:Female Date:09/12/2024 Address: [address] [place], [place] Pcp:Mana Pereira NVikram Subjective: * Chief Complaints: * 1 . Positive colon ca screening using cologuard. * Medical History: Objective: * Vitals: Assessment: * Assessment: 1. C olon cancer screening - Z12.11 (Primary) 2 . C olon polyp - K63.5 3 . H socorro + stool - R19.5 4 . D iverticulosis of large intestine without perforation or abscess without bleeding - K57.30 5 . O ther hemorrhoids - K64.8 Plan: * Treatment: * Procedure Codes: 4 5385 LESION REMOVAL COLONOSCOPY, Modifiers: PT , 0529F INTRVL 3+YRS PTS CLNSCP DOCD, 0528F RCMND FLW-UP 10 YRS DOCD, Modifiers: 8P * * The named appointment provid er may or may not be the originator of this progress note, and it is not deemed complete until electronically signed by the appointment provider. Sign off status: Pending * Provider: Sarah Barrow MD Date: 0 09/12/2024 Generated for Tatyana kim/Eli/Poloitting on: 0 04/08/2025 08:02 AM EDT
--- OUTSIDE RECORDS SUMMARY | 2025-04-08 08:03 | XMS_ITS | Patient Health Record ---
Author Organization [facility] Address [address] [place] [address] Care Team Providers Care Honey Producer Name Role Phone Mana Pereira N.P. Primary Care Provider Pascual Rubio [phone] Allergies Allergen (clinical drug ingredient) Drug/Non Drug Allergy documented on EMR Reaction Allergy Type Onset Date Status enviornmental (uncoded) Unknown Allergy Active Results Component Value Reference Range Notes Pathology (Not yet reviewed by provider) Interpretation: Performing Lab:[facility], [address] [place] [phone] Notes/Report: Reason For Referral No Information Medications Medication [...] 1 tab Oral for 14 days Active Immunizations Vaccine Route Administration Date Status Comme nts Influenza Unknown 09/10/2024 Refused Social History Tobacco Use: Social History Observation Description Date Details (start date - stop date) Never Smoker NA - NA Tobacco Use/Smoking Question Answer Notes Patient is a nonsmoker Alcohol Screen Question Answer Notes Did you have a drink containing alcohol in the p ast year? 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8 [facility] [address] [place] [phone] 09/10/2024 Pascual Barrow Bile salt-induced diarrhea K90.89 and Positive colorectal cancer screening using Cologuard test R19.5 [facility] [address] [place] [phone] 09/10/2024 Pascual Barrow Assessments Encounter Date Diagnosis (ICD Code) Assessment Notes Treatment Notes Treatment Clinical Notes Section Notes 09/12/2024 Colon cancer screening (ICD-10 - Z12.11) 09/12/2024 Colon polyp (ICD-10 - K63.5) 09/10/2024 Positive colorectal cancer screening using Cologuard test (ICD-10 - R19.5) Overall, Rona appears quite well. Given her recent positive Cologuard test and her last colonoscopy being well over 10 years ago, I did recommend a colonoscopy for further evaluation. We did review the rationale for this in regard to colorectal cancer prevention and/or early detection. Full consent was obtained for this, including risks of bleeding and perforation. The procedure will be done with monitored anesthesia care. In regard to her episodes of diarrhea ever since her gallbladder surgery, we did discuss the possibility of a bile-induced diarrhea as a result of her surgery. I am going to give her a trial of cholestyramine powder for her to try once or twice a day to see if that can give her some improvement. I advised her to start off with a small amount so as to avoid constipation, and then to increase the dose as needed. Rona was comfortable with this plan. Thank you again for allowing me to participate in Rona's care. I shall continue to keep you advised of her progress. 09/10/2024 Bile salt-induced diarrhea (ICD-10 - K90.89) Overall, Rona appears quite well. Given her recent positive Cologuard test and her last colonoscopy being well over 10 years ago, I did recommend a colonoscopy for further evaluation. We did review the rationale for this in regard to colorectal cancer prevention and/or early detection. Full consent was obtained for this, including risks of bleeding and perforation. The procedure will be done with monitored anesthesia care. In regard to her episodes of diarrhea ever since her gallbladder surgery, we did discuss the possibility of a bile-induced diarrhea as a result of her surgery. I am going to give her a trial of cholestyramine powder for her to try once or twice a day to see if that can give her some improvement. I advised her to start off with a small amount so as to avoid constipation, and then to increase the dose as needed. Rona was comfortable with this plan. Thank you again for allowing me to participate in Rona's care. I shall continue to keep you advised of her progress. 09/12/2024 Heme + stool (ICD-10 - R19.5) 09/12/2024 Diverticulosis of large intestine without perforation or abscess without bleeding (ICD-10 - K57.30) 09/12/2024 Other hemorrhoids (ICD-10 - K64.8) Plan Of Treatment Pending Test Test Name Order Date Pathology 09/12/2024 Future Test Test Name Order Date COLONOSCOPY 09/10/2024 Next Appt Details Provider Name:Pascual Barrow , 05/14/2025 10:00:00 AM, [address] [facility], [address], [place], [address], Insurance Providers Payer Name Payer Address Payer Phone Subscriber Number Group Number Insured Name Patient Relationship to Insured Coverage Start Date Coverage End Date [place] [address] [place] [address] [id number] RONA LEÓN Self - patient is the insured [facility] [address] [place] [address] [id number] RONA LEÓN Self - patient is the insured Medical (General) History Medical History History ICD Code Breast cancer 2009 -on the left--lumpect russ and XRT Negative screening colonoscopy in 2008 Denies NC,DM,CVA,Lung disease,renal dise ase Chronic cough Surgical History Surgery Date(Month/Year) Bladder suspension [facility] Breast cancer surgery -left lumpectomy
--- OUTSIDE RECORDS SUMMARY | 2025-04-08 08:03 | XMS_ITS | Patient Health Record ---
[facility] Organization [facility] Address [address] [place] [id number] Care Team Providers Care Import Dispatcher Name Role Phone EBONY BARKSDALE N.P. Primary Care Provider Claudia Degroot Unavailable [phone] Allergies No Known Allergies Reason For Referral [...] Status Risk Notes Problem Incomplete uterovaginal prolapse (802709495) Incomplete uterovaginal prolapse (N81.2) Active confirmed Problem Herniation of rectum into vagina (505615449) Rectocele (N81.6) Active confirmed Problem Age-related osteoporosis (096317860) Age-related osteoporosis without current pathological fracture (M81.0) Active confirmed Problem Osteochondropathy (00677959) Disorder of bone density and structure, unspecified (M85.9) Active confirmed Problem Hyperparathyroidism (57429991) Hyperparathyroi dism, unspecified (E21.3) Active confirmed Problem Uncomplicated asthma (disorder) (252421796) Unspecified asthma, uncomplicated (J45.909) Active confirmed Problem Cystocele (191895569) Cystocele, unspecified (N81.10) Active confirmed Problem Screening for malignant neoplasm of breast (797266394) Encounter for screening mammogram for malignant neoplasm of breast (Z12.31) Active confirmed Problem Personal history of primary malignant neoplasm of breast (114497501) Personal history of malignant neoplasm of breast (Z85.3) Active confirmed Problem Vitamin D deficiency (99438783) Vitamin D deficiency, unspecified (E55.9) Active confirmed Vital Signs Temperature 98.0 degrees Fahrenheit 07/23/2024 Blood pressure diastolic 78 mm Hg 07/23/2024 Height 62.75 in 07/23/2024 Blood pressure systolic 120 mm Hg 07/23/2024 Weight 152 lbs 07/23/2024 BMI 27.14 kg/m2 07/23/2024 Encounters Encounter Location Date Provider Diagnosis [address] [address] 07/23/2024 Claudia Corona Encounter for screening mammogram [...] Provider Name:Claudia Berg lara, 08/05/2025 10:00:00 AM, [address] [place] [address], [facility] [address], [place], [address], Insurance Providers Payer Name Payer Address Payer Phone Subscriber Number Group Number Insured Name Patient Relationship to Insured Coverage Start Date Coverage End Date MEDICARE [address] [facility] [place] [id number] [phone] [id number] RONA LEÓN Self - patient is the insured [facility] [address] [place] [phone] [id number] RONA LEÓN Self - patient is the [...]
--- OUTSIDE RECORDS SUMMARY | 2025-04-08 08:03 | XMS_ITS | Patient Health Record ---
Author Organization [facility] [place] Address [address] [place] [address] Care Team Providers Care Sand Sifter Name Role Phone Rex Ruelas MD Primary Care Provider Hector Taylor Unavailable [phone] Reason For Referral No Information Medications Medication SIG (Take, Route, Frequency, Duration) Notes Start Date End Date Status Advil 200 MG 1 tablet as needed Orally every 6 hrs 12/18/2012 Active Levothroid 25 MCG 1 tablet on an empty stomach in the morning Orally Once a day; Duration: 30 day(s) Active hydroCHLOROthiazide 12.5 MG 1 capsule Or ally Once a day; Duration: 30 day(s) Active Problems Problem Type SNOMED Code ICD Code Onset Dates Problem Status W/U Status Risk Notes Problem Disorder of joint of ankle and/or foot (623495992) Arthritis - Degenerative (719.97) Active confirmed Problem Neuralgia - Neuritis (729.2) Active confirmed Problem Hallux valgus (379331909) Hallux Valgus (735.0) Active confirmed Problem Pain in limb (47675513) Pain in Limb (729.5) Active confirmed Plan Of Treatment Pending Test Test Name Order Date X ray : Foot, left 3V 12/18/2012 Insurance Providers Payer Name Payer Address Payer Phone Subscriber Number Group Number Insured Name Patient Relationship to Insured Coverage Start Date Coverage End Date [facility] [address] [place] [id number] [employer] Self - patient is the insured Medical (General) History Medical History History ICD Code cancer headaches/migraines high blood pressure thyroid disorder measles mumps chicken pox Surgical History Surgery Date(Month/Year) breast surgery bladder surgery
== END 2025-04-08 07:58 | disposition home or self-care (01) ==
LOC: HO.MAMMO 07:57
PROVIDERS: Absent Provider Obstetrics & Gynecology Gynecology; PCP Nurse Practitioner Family; Visit Provider Nurse Practitioner Family
DX: Z12.31 Encounter for screening mammogram for malignant neoplasm of breast (principal)
CPT/HCPCS: 77063; 77067

== ENCOUNTER → 2025-04-08 08:15 | Outpatient (BNV) | payer MEDICARE, OTHER, SELFPAY | PROVIDERS: Absent Provider Obstetrics & Gynecology Gynecology; PCP Nurse Practitioner Family; Visit Provider Internal Medicine | DX: Z12.31 Encounter for screening mammogram for malignant neoplasm of breast (principal) | CPT/HCPCS: 77063; 77067 ==